=== PATIENT | male | born 1930 | race Caucasian/White ===

== ENCOUNTER → 2017-12-01 | Outpatient (CLI) | payer OTHER | LOC: RAD 16:21 | DX: S60.221A Contusion of right hand, initial encounter (principal); J84.10 Pulmonary fibrosis, unspecified; M25.741 Osteophyte, right hand; M79.89 Other specified soft tissue disorders; I10 Essential (primary) hypertension; X58.XXXA Exposure to other specified factors, initial encounter; Y93.89 Activity, other specified; Y92.89 Other specified places as the place of occurrence of the external cause; Y99.8 Other external cause status ==

== ENCOUNTER 2018-06-30 10:30 | Inpatient (IN) | payer OTHER ==
[~2018-06-30] VITALS: Ht 167.6 cm; Wt 73.8 kg
[2018-06-30 10:31] VITALS: BP 132/55
[2018-06-30 11:10] LABS: ABSOLUTE NEUTROPHILS 4.1 thou/uL (1.4-8.2); BASOPHILS 0.1 % (0.0-2.0); EOSINOPHILS 0.1 % (0.0-3.0); HEMATOCRIT 37.6 % (42.0-52.0); HEMOGLOBIN 12.4 gm/dL (14.0-18.0); LYMPHOCYTES 4.2 % (24.0-44.0); MCH 30.9 pg (26.0-34.0); MCV 93.6 fL (80.0-100.0); MONOCYTES 0.4 % (1.0-8.0); PLATELET COUNT 105 thou/uL (150-400); POLYS 95.2 % (36.0-66.0); RBC 4.02 mil/uL (4.50-6.00); RDW 14.4 % (10.5-14.5); WBC 4.5 thou/uL (4.0-11.0)
[2018-06-30 11:16] LABS: HCO3 19.4 mmol/L (22.0-26.0); PCO2 27.3 mmHg (35.0-45.0); PO2 60.5 mmHg (80.0-100.0); pH 7.469 (7.360-7.450)
[2018-06-30 11:19] LABS: ANION GAP 16 mmol/L (7-16); BUN 25 mg/dL (7-18); CALCIUM 8.6 mg/dL (8.5-10.1); CHLORIDE 99 mmol/L (98-107); CO2 21 mmol/L (21-32); CREATININE 1.4 mg/dL (0.7-1.3); GLUCOSE 204 mg/dL (74-106); POTASSIUM 3.4 mmol/L (3.5-5.1); SODIUM 136 mmol/L (136-145)
[2018-06-30 11:28] LABS: ALBUMIN 3.2 g/dL (3.4-5.0); SGOT 30 U/L (15-37); SGPT 23 U/L (30-65); TOTAL BILIRUBIN 1.5 mg/dL (<0.1-1.0); TOTAL PROTEIN 6.6 g/dL (6.4-8.2); TROPONIN-I <0.06 ng/mL (<0.06)
[2018-06-30 13:17] LABS: URINE BILIRUBIN NEGATIVE (Negative); URINE BLOOD 2+ (Negative); URINE CLARITY SL CLOUDY; URINE COLOR YELLOW; URINE GLUCOSE-RANDOM* TRACE (Negative); URINE KETONES TRACE (Negative); URINE LEUKOCYTES-REFLEX NEGATIVE (Negative); URINE NITRITE-REFLEX NEGATIVE (Negative); URINE PROTEIN (DIPSTICK) 2+ (Negative); URINE SPECIFIC GRAVITY >= 1.030 (1.005-1.035); URINE UROBILINOGEN 0.2 E.U./dl (0.2-1.0)
[2018-06-30 13:34] LABS: MUCUS 0-3 Light strn/LPF (None Seen); SQUAMOUS 0-3 Few /LPF (0-3); URINE WBC-REFLEX 0-5 Rare /HPF (0-5)
[2018-06-30 13:35] LABS: BACTERIA-REFLEX None Seen /HPF (None Seen)
[2018-06-30 13:36] LABS: CRYSTALS None Seen /LPF (None Seen); FINE GRANULAR CASTS 0-3 Few /LPF (None Seen); URINE RBC 0-2 Rare /HPF (0-2)
--- NOTE | 2018-06-30 15:23 | EKG ---
[place] [address] [facility] [place] [address] ELECTROCARDIOGRAM REPORT Name: PAULA CALL Room #: [facility]#: [id number] ������������������ Admission: 06/30/18 ������������������ Attend Phys: Discharge: ������������������ Date of : 30 Report #: [id number] ����������������������������������������������������������������� [id number] THIS REPORT FOR: //name// [facility] ED Test Date: 2018-06-30 Test Time: 10:51:41 Pat Name: PAULA CALL Department: Room: Gender: Community Facilitator: HERBER : 1930 Requested By: Luz Dillon Order Number: [id number] MD: Yovanny Villagomez Measurements Intervals [place] Rate: 67 P: 21 FL: 151 QRS: 26 QRSD: 96 T: 37 QT: 439 QTc: 464 Interpretive Statements Sinus rhythm Nonspecific ST segment abnormality No previous ECG available for comparison Electronically Signed On 06-30-2018 15:23:15 CDT by Yovanny Villagomez [email or web address] ��������������������������������������������� <ELECTRONICALLY SIGNED> ���������������������������������������� By: Yovanny Villagomez MD, [facility] ��������������������������������������������� 06/30/18 1523 1051 1051 Yovanny Villagomez MD, FACC /EPI
[2018-06-30 16:21] VITALS: BP 114/56
[2018-06-30 17:21] VITALS: BP 103/49
[2018-06-30 19:45] VITALS: BP 123/51
[2018-07-01 00:07] VITALS: BP 107/42
[2018-07-01 04:02] LABS: CREATININE 1.5 mg/dL (0.7-1.3); POTASSIUM 3.8 mmol/L (3.5-5.1)
[2018-07-01 04:13] LABS: CALCIUM 7.3 mg/dL (8.5-10.1)
[2018-07-01 04:38] LABS: HEMATOCRIT 32.8 % (42.0-52.0); HEMOGLOBIN 10.8 gm/dL (14.0-18.0); MCH 30.9 pg (26.0-34.0); MCV 93.7 fL (80.0-100.0); PLATELET COUNT 90 thou/uL (150-400); RDW 14.7 % (10.5-14.5)
[2018-07-01 04:48] LABS: WBC 17.4 thou/uL (4.0-11.0)
[2018-07-01 05:22] VITALS: BP 114/54
[2018-07-01 05:30] LABS: ABSOLUTE NEUTROPHILS 16.2 thou/uL (1.4-8.2)
[2018-07-01 05:31] LABS: PLATELET ESTIMATE DECREASED
--- NOTE | 2018-07-01 06:19 | NUR ---
PATIENT IS PROGRESSING SLOWLY IN HIS CARE PLAN. VITAL SIGNS MOSTLY STABLE THROUGHOUT SHIFT WITH PATIENT EXHIBITING HYPOTENSION PRIMARILY EARLY IN SHIFT. ALERT AND ORIENTED, PATIENT IS UNABLE TO EFFECTIVELY COMMUNICATE NEEDS DUE TO BEING SYRIAC LANGUAGE SPEAKING ONLY. BLACK ASH BURNER OPERATOR WAS CONTACTED TO HELP TRANSLATE WHEN EFFECTIVE COMMUNICATION WAS ABSOLUTELY NECESSARY. NURSE HAS NOT BEEN ABLE TO EFFECTIVELY RECONCILE MEDICATIONS DUE TO LANGUAGE BARRIER. NURSE NOTED DECREASED URINARY OUTPUT WITH HYPOTENSION EARLY IN SHIFT AND RECEIVED ORDERS FOR FLUID BOLUS WHICH PATIENT DID NOT TOLERATE WELL. LABORED BREATHING NOTED. PATIENT RESPONDED WELL TO ONETIME ORDER OF LASIX AND HAS BEEN ABLE TO PASS 600 CC OF URINE ON SHIFT. CONSULT TO INFECTIOUS DISEASE DOCTOR CALLED TO ANSWERING MACHINE EARLY IN SHIFT WITH PATIENT TO CALL BACK PRIOR TO LEAVING. GRAM NEGATIVE RODS NOTED IN BLOOD CULTURES. PATIENT IS A HIGH FALL RISK AND HAS SHOWN SIGNS OF BEING IMPULSIVE. CONTINUE PLAN OF CARE.
[2018-07-01 07:13] VITALS: BP 107/41
[2018-07-01 10:55] VITALS: BP 106/50
--- NOTE | 2018-07-01 14:50 | NUR ---
Case opened to follow for dc planning. Pt speaks only Indonesian and understands some Icelandic words. Dock Operator spoke with the pt's son Soy to complete the assessment. He reports that his parents live in a first floor apartment independently. The pt drives and is able to get around with a cane. They go out to the [employer] services during the week. He checks on them regularly. The pt's pcp is Dr. Doan. Pt's does not drive. Therapy evals have been initiated due to weakness. The pt has health insurance in place for f/u care. Will await the care team recommendations. Pt's son would like education info for any diagnosis and followup care needs.
[2018-07-01 20:20] VITALS: BP 151/57
[2018-07-02 03:27] VITALS: BP 149/72
[2018-07-02 05:30] LABS: ABSOLUTE NEUTROPHILS 10.1 thou/uL (1.4-8.2); BASOPHILS 0.3 % (0.0-2.0); HEMATOCRIT 33.4 % (42.0-52.0); LYMPHOCYTES 4.7 % (24.0-44.0); MCH 30.6 pg (26.0-34.0); MCHC 33.1 g/dL (28.0-37.0); MCV 92.5 fL (80.0-100.0); PLATELET COUNT 73 thou/uL (150-400); RBC 3.61 mil/uL (4.50-6.00); RDW 14.6 % (10.5-14.5); WBC 11.1 thou/uL (4.0-11.0)
[2018-07-02 05:49] LABS: ALBUMIN 2.4 g/dL (3.4-5.0); CALCIUM 7.6 mg/dL (8.5-10.1); CREATININE 1.1 mg/dL (0.7-1.3); TOTAL BILIRUBIN 1.5 mg/dL (<0.1-1.0); TOTAL PROTEIN 5.8 g/dL (6.4-8.2)
[2018-07-02 05:54] LABS: POTASSIUM 2.8 mmol/L (3.5-5.1)
--- NOTE | 2018-07-02 06:10 | NUR ---
ASSUME CARE 1900. PT/VITALS STABLE. NO PAIN INDICATED. LANGUAGE BARRIER IS A HINDERANCE TO COMMUNICATION. UP WITH STB ASSIST TO BATHROOM. ASSESSMENT CHARTED. SR WITH PACs NOTED ON THE MONITOR. AB US NOTED SOME INFLAMMATION. PLAN IS CONTINUE WITH FLAGYL AND ZOSYN. WILL CONTINUE TO MONITOR AND FOLLOW WITH POC
[2018-07-02 08:03] VITALS: BP 153/78
--- NOTE | 2018-07-02 09:51 | HC ---
[facility] [place] [address] CONSULTATION Name: PAULA CALL Room #: 217-P ADM IN M.R.#: [id number] Admission: 06/30/18 ������������������ Attend Phys: Brisa Lux MD Discharge: ������������������ Date of : 30 Report #: [id number] THIS REPORT FOR: //name// CC: Young Lux DATE OF SERVICE: 07/01/2018 ATTENDING PHYSICIAN: Brisa Lux MD. REASON FOR CONSULTATION: Sepsis. HISTORY OF PRESENT ILLNESS: An 88-year-old Hungarian man admitted through the Emergency Room with history of chest pain in the Emergency Room. The patient apparently was found to be febrile with lactic acidosis and symptoms of sepsis. He is started on Zosyn intravenously. Blood cultures are showing gram-negative rods today. The patient speaks very little Congolese. He specifically denies having had any pain or having had any previous abdominal surgical interventions. The patient's son apparently here recently and there was a possible history of aspiration pneumonia. PAST MEDICAL HISTORY: 1. Hypertension. 2. Diabetes mellitus. SOCIAL HISTORY: Born in [facility]. Resides in the [place] area. He has a son that was visiting with recently. The patient's nurse reports the patient is better. The patient is only able to tell me he on the right forearm and a scar he has on the right forearm. No previous surgical intervention. Specifically, denies pain anywhere. DRUG ALLERGIES: None listed. MEDICATIONS: The patient is currently on treatment with Zosyn loading dose followed by 3.375 grams IV every 8 hours. He is also receiving treatment with Atrovent/albuterol inhalation treatments, normal saline at 1000 mL every 13 hours, insulin lispro per sliding scale, acetaminophen 650 mg p.o. q.i.d. p.r.n., p.r.n. glucose glucagon. Received some Lasix. REVIEW OF SYSTEMS: Rather limited due to poor Congolese language abilities. PHYSICAL EXAMINATION: GENERAL: Well-developed, not toxic looking man. VITAL SIGNS: Temperature of 101.3 on 06/30/2018 at 10:31 a.m., pulse 66, respirations 25, BP 132/55 on admission, currently temperature 99, BP 107/41. Intake 970, output 650. The patient had a Dowling catheter. [address] [address] CONSULTATION Name: PAULA CALL Room #: [facility] ..#: [id number] Admission: 06/30/18 ������������������ Attend Phys: Brisa Lux MD Discharge: ������������������ Date of : 30 Report #: [id number] HEENMT: Pupils reactive, arcus cornealis. Mouth: Missing teeth, periodontal disease. No thrush. NECK: Supple, no thyromegaly. LUNGS: Bibasilar crackles. HEART: S1, S2. No gallop. No pericardial friction rub. ABDOMEN: Soft, no masses or megaly, no abnormal tenderness. GENITALIA: Dowling catheter in place. RECTAL: Deferred. EXTREMITIES: No clubbing, cyanosis. NEUROLOGIC: Grossly within normal limits. LABORATORY DATA: Sodium 139, hypokalemia of 3.4, correcting at 3.8 today. BUN 29, creatinine 1.5 mg/dL, worse compared to yesterday. Glucose 204 yesterday, 129 this morning. Total bilirubin mildly elevated at 1.5, calcium 7.3, possibly represented hypoalbuminemia and its matter of fact he has an albumin of 3.2 g/dL yesterday. Lactic acid was as high as 4.3, decreased to 2.9 today. White blood cell count on admission 4500, today is 17,400. Hemoglobin 10.8 g/dL and platelets dropped from 105,000 yesterday to 90,000 today. The white blood cell count differential reveals 63% segmented neutrophils, 30% bands. The urinalysis reveals specific gravity greater than 1.030, pH 5.5, 2+ protein, trace glucose and ketones, 2+ blood. Microscopic exam revealed 0-5 wbc's per HPF, 0-2 rbc's per HPF, no bacteria, slight mucus. ABGs, pH 7.46, pCO2 27, pO2 60, bicarbonate 19.4, lactate 5.26. These set of gases, I believe, is on room air. MICROBIOLOGY DATA: Blood cultures x 2 were obtained on the date of admission at 10:45 and 10:59 a.m. and both of them showed gram-negative rods. No further identification. RADIOLOGY EVALUATION: A chest x-ray revealed basilar densities suggestive of atelectasis versus pneumonitis. A CT scan of the abdomen and pelvis revealed bibasilar atelectasis, tiny right-sided pleural effusion. Gallbladder with thickened wall and pericholecystic fluid, question cholecystitis. 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 scan of the chest revealed many abnormalities that include atelectasis versus pneumonitis both bases. Air over the anterior heart, presumably iatrogenic versus secondary to sepsis. Possible acute cholecystitis. ASSESSMENT: 1. Severe sepsis. 2. Fever secondary to above. 3. Leukocytosis, bandemia, anemia and thrombocytopenia secondary to sepsis. 4. Possible acute cholecystitis. 5. Intrathoracic gas air, question iatrogenic versus secondary to sepsis. 6. Possible cholecystitis. 7. Possible bibasilar pneumonia. 8. Gram-negative robbie bacteremia secondary to above. [facility] [address] [place] [address] CONSULTATION Name: PAULA CALL Room #: 217-P ADM IN M.R.#: [id number] Admission: 06/30/18 ������������������ Attend Phys: Brisa Lux MD Discharge: ������������������ Date of : 30 Report #: [id number]. Combined metabolic and lactic acidosis with respiratory alkalosis, compensated. SUGGESTIONS: Recommend continue Zosyn 3.375 grams IV every 8 hours, add Flagyl 500 mg IV every 8 hours. Monitor CBC with differential, CMP in the morning. Ultrasound of the gallbladder to rule out possibility of acute cholecystitis. Dr. Brisa Lux, thank you for requesting my suggestions in the care of your patient. ��������������������������������������������� <ELECTRONICALLY SIGNED> ���������������������������������������� By: Lizandro Ybarra MD ��������������������������������������������� 07/02/18 0951 06 Lizandro Ybarra MD /nt
[2018-07-02 11:17] VITALS: BP 152/82
--- NOTE | 2018-07-02 16:02 | NUR ---
ORIENTED TO SELF. COOPERATIVE. ADULT SON HERE EARLY THIS A.M. BUT HAD TO LEAVE FOR WORK. PATIENT UNDERSTANDS AND SPEAKS TAMAZIGHT WELL ENOUGH TO FOLLOW DIRECTIONS AND MAKE HIS NEEDS KNOWN. DR. PAULINO ORDERS BISHOP REMOVAL. ASSISTED TO BR TO VOID AND FOR BM POST REMOVAL. K+ 2.8 REPLACED ORDERED. ANTIBIOTICS ORDERED. BED AND CHAIR ALARMS, FALL PRECAUTIONS IN EFFECT, CLOSE TO NURSES' STATION, FREQUENT CHECKS. SR W/PAC's PER TELE. FREQUENT CHECKS, WILL CONTINUE TO MONITOR.
[2018-07-02 16:40] VITALS: BP 179/72
[2018-07-02 20:00] VITALS: BP 185/66
--- NOTE | 2018-07-03 06:00 | NUR ---
ASSUME CARE 1900. PT STABLE. BP RUNS HIGH. TECHNICAL EDUCATION TEACHER CALLED AND AMLODIPIN RESTARTED ON PT. ADEQUATE REST NOTED. BISHOP OUT. PT VOIDING FREQUENTLY/CLR/YELLOW URINE. ON ELECTROLYTE PROTOCOL AND K/MG RECHECKED. APPLE JUICE GIVEN AT MIDNIGHT TO BOOST BLOOD SUGAR (SUGAR AT 90). NPO SINCE THEN FOR PIPIDA SCAN TODAY. SR ON MONITOR. PLAN IS TO CONTINUE TO TREAT WITH ABX AND FOLLOW UP ON THE RESULTS OF THE PIPIDA SCAN. WILL CONTINUE TO FOLLOW WITH POC
[2018-07-03 06:12] LABS: MAGNESIUM 1.5 mg/dL (1.8-2.4)
[2018-07-03 08:00] VITALS: BP 169/67
[2018-07-03 12:00] VITALS: BP 194/73
--- NOTE | 2018-07-03 15:43 | NUR ---
PIPIDA SCAN DONE THIS AM. VERY PLEASANT AND COOPERATIVE. SEEMS TO UNDERSTAND SOME UZBEK - SON AT BEDSIDE. DENIES PAIN. COLOR PINK SKIN WARM AND DRY. IV RIGHT HAND AND LEFT AC. ELECTROLYTE REPLACEMENT FOR K INFUSED 2 BAGS AND REPEATED K LEVEL. UP IN CHAIR MOST OF SHIFT.
[2018-07-03 16:00] VITALS: BP 198/82
[2018-07-03 19:27] VITALS: BP 176/70
[2018-07-03] MEDS ORDERED: ZESTRIL40 MG PO (23:24)
[2018-07-03] MEDS ORDERED: PIOGLITAZONE15 MG PO (23:24)
[2018-07-03] MEDS ORDERED: NORVASC5 MG PO (23:25)
[2018-07-03] MEDS ORDERED: AMARYL4 MG PO (23:26)
[2018-07-03] MEDS ORDERED: LIPITOR 20 MG T20 M1 PO (23:26)
[2018-07-04] VITALS: BP 176/70
[2018-07-04 04:00] VITALS: BP 135/86
[2018-07-04 04:12] LABS: MAGNESIUM 1.6 mg/dL (1.8-2.4); POTASSIUM 3.1 mmol/L (3.5-5.1)
[2018-07-04 04:46] LABS: HEMATOCRIT 34.2 % (42.0-52.0); HEMOGLOBIN 11.3 gm/dL (14.0-18.0); MCH 30.4 pg (26.0-34.0); MCHC 33.1 g/dL (28.0-37.0); MCV 91.9 fL (80.0-100.0); RBC 3.73 mil/uL (4.50-6.00); RDW 14.4 % (10.5-14.5); WBC 5.5 thou/uL (4.0-11.0)
[2018-07-04 08:00] VITALS: BP 154/73
--- NOTE | 2018-07-04 08:19 | NUR ---
ASSUME CARE 1900. PT STEADY. BP RUNS HIGH. MORE BP MEDS SCHEDULED TO HELP MANAGE BP. CDIFF NEGATIVE/ISO DISCONTINUED. SR ON MONITOR. ADEQUARE URINE OUTPUT NOTED. K/ MG REPLACEMENT STARTED. PLAN IS TO CONTINUE WITH ABX TREATMENT. WILL CONITNUE TO MONITOR AND FOLLOW WITH POC
[2018-07-04 09:43] LABS: ALBUMIN 2.6 g/dL (3.4-5.0); CALCIUM 8.6 mg/dL (8.5-10.1); CREATININE 0.9 mg/dL (0.7-1.3); POTASSIUM 3.8 mmol/L (3.5-5.1); TOTAL BILIRUBIN 1.2 mg/dL (<0.1-1.0); TOTAL PROTEIN 6.4 g/dL (6.4-8.2)
[2018-07-04 12:00] VITALS: BP 147/62
--- NOTE | 2018-07-04 18:47 | NUR ---
VERY PLEASANT AND COOPERATIVE. GOOD TOLERATION OF FULL LIQUID DIET. UP IN CHAIR MOST OF SHIFT. STEADY ON FEET. DENIES PAIN. SON IN ROOM MOST OF SHIFT. IV RIGHT HAD DISCONTINUED DUE TO LEAKAGE AT SITE.
[2018-07-04 20:31] VITALS: BP 184/73
[2018-07-05 00:06] VITALS: BP 171/64
[2018-07-05 04:09] VITALS: BP 156/53
[2018-07-05 05:41] LABS: HEMATOCRIT 33.5 % (42.0-52.0); HEMOGLOBIN 11.1 gm/dL (14.0-18.0); MCH 30.4 pg (26.0-34.0); MCHC 33.3 g/dL (28.0-37.0); MCV 91.4 fL (80.0-100.0); RBC 3.66 mil/uL (4.50-6.00); RDW 14.6 % (10.5-14.5); WBC 5.5 thou/uL (4.0-11.0)
[2018-07-05 05:58] LABS: ALBUMIN 2.4 g/dL (3.4-5.0); CALCIUM 7.9 mg/dL (8.5-10.1); CREATININE 0.8 mg/dL (0.7-1.3); MAGNESIUM 1.6 mg/dL (1.8-2.4); POTASSIUM 3.6 mmol/L (3.5-5.1); TOTAL BILIRUBIN 0.9 mg/dL (<0.1-1.0); TOTAL PROTEIN 5.2 g/dL (6.4-8.2)
--- NOTE | 2018-07-05 06:25 | NUR ---
ASSUME CARE 1900. PT STABLE. SBP RUNS HIGH MOSTLY. DENIES ANY PAIN. POOR APPETITE NOTED. SLEEPY BUT EASILY AROUSABLE. UP WITH WALKER TO BATHROOM NEEDED. ASSESSMENT CHARTED. PROGRESSING MODERATLY WITH POC. PLAN IS TO CONTINUE TRETING PT WITH ABX. WILL CONTINUE TO FOLLOW WITH POC.
[2018-07-05 08:48] VITALS: BP 156/66
[2018-07-05 11:43] VITALS: BP 185/79
--- NOTE | 2018-07-05 14:41 | NUR ---
AAOX4 VERY PLEASANT AND COOPERATIVE. SPEAKS VERY LITTLE [place]. TOLERATED REGULAR DIET WELL. DENIE PAIN. SALINE LOCK LEFT AC. VOIDS PER URINAL. UP IN HALLS WITH PT SLOW STEADY GAIT. UP IN CHAIR MOST OF SHIFT. DENIES PAIN.
[2018-07-05 17:01] VITALS: BP 182/67
[2018-07-05 19:04] VITALS: BP 186/61
[2018-07-06 00:47] VITALS: BP 171/62
--- NOTE | 2018-07-06 04:13 | NUR ---
ASSESSMENT DOCUMENTED.PT RESTING IN NO ACUTE DISTRESS.A/OX4.VSS.VOIDING VIA URINAL.B/P ELEVATED.MONITORING.PT ASYMPOTOMATIC.DENIES ANY CONCERNS AT THIS TIME.POC IS TO CONT TO MONITOR AND WITH CURRENT TX.
[2018-07-06 04:23] LABS: ALBUMIN 2.6 g/dL (3.4-5.0); CALCIUM 8.6 mg/dL (8.5-10.1); CREATININE 0.9 mg/dL (0.7-1.3); POTASSIUM 3.5 mmol/L (3.5-5.1); TOTAL BILIRUBIN 0.6 mg/dL (<0.1-1.0); TOTAL PROTEIN 5.6 g/dL (6.4-8.2)
[2018-07-06 04:33] VITALS: BP 164/55
[2018-07-06 04:43] LABS: HEMATOCRIT 34.4 % (42.0-52.0); HEMOGLOBIN 11.5 gm/dL (14.0-18.0); MCH 30.5 pg (26.0-34.0); MCHC 33.4 g/dL (28.0-37.0); MCV 91.2 fL (80.0-100.0); RBC 3.77 mil/uL (4.50-6.00); RDW 14.6 % (10.5-14.5); WBC 5.6 thou/uL (4.0-11.0)
[2018-07-06 08:09] VITALS: BP 169/57
[2018-07-06 11:12] VITALS: BP 156/64
--- NOTE | 2018-07-06 11:17 | NUR ---
ASSUMED CARE AT 0700, SHIFT ASSESSMENT DONE, MEDS GIVEN, VSS. DENIES ANY PAIN, NAUSEA, VOMITING. HAD TWO EPISODES OF INCONTINENCE. REMAINS ON 2L NC. PT AND OT ORDERED, WAITING FOR EVALUATION. AWAITING FOR A URINE SAMPLE FOR URINE CULTURE. WILL CONTINUE TO ASSESS AND ASSIST WITH ADLs NEEDED.
[2018-07-06] MEDS ORDERED: KEFLEX500 M1 PO (11:36)
[2018-07-06 12:59] VITALS: BP 156/64
--- NOTE | 2018-07-06 14:33 | NUR ---
ASSUMED CARE AT 0700, SHIFT ASSESSMENT DONE, MEDS GIVEN, VSS. DENIES ANY PAIN, NAUSEA, VOMITING. ACHS, COVERGE NEEDED. DISCHARGE ORDER RECEIVED, PERIPHERAL IV WAS TAKEN OUT. FAMILY NOTIFIED. SCRIPT AND PAPER WORK GIVEN. SUPPOSED TO BE PICKED UP BY FAMILY AT 1500
== END 2018-07-06 15:12 | disposition home or self-care (01) | DRG 871 ==
LOC: ER 10:30 → 2N 15:50 → EROBS 15:50 → 2N 18:00 → ENTRNSPT 07-06 15:01 → EDTRNSPTSTS 07-06 15:04 → 2N 07-06 15:12
PROVIDERS: Hospitalist; Internal Medicine; Internal Medicine Infectious Disease; Nurse Practitioner Family; Physician Assistant; ADMIT Internal Medicine
DX: A41.51 Sepsis due to Escherichia coli [E. coli] (principal); J18.9 Pneumonia, unspecified organism; R65.21 Severe sepsis with septic shock; J96.01 Acute respiratory failure with hypoxia; E87.2 Acidosis; N18.9 Chronic kidney disease, unspecified; D64.9 Anemia, unspecified; D69.6 Thrombocytopenia, unspecified; R79.89 Other specified abnormal findings of blood chemistry; N40.0 Benign prostatic hyperplasia without lower urinary tract symptoms; K81.9 Cholecystitis, unspecified; E83.42 Hypomagnesemia; I12.9 Hypertensive chronic kidney disease with stage 1 through stage 4 chronic kidney disease, or unspecified chronic kidney disease; E11.22 Type 2 diabetes mellitus with diabetic chronic kidney disease
CPT/HCPCS: 10081

== ENCOUNTER → 2018-07-12 | Outpatient (CLI) | payer OTHER ==
[~2018-07-12] MED LIST: AMARYL4 MG PO; KEFLEX500 M1 PO; LIPITOR 20 MG T20 M1 PO; NORVASC5 MG PO; PIOGLITAZONE15 MG PO; ZESTRIL40 MG PO
== END ==
LOC: RAD 11:33
DX: R78.81 Bacteremia (principal); Z87.898 Personal history of other specified conditions